=== PATIENT | male | born 1935 | race Caucasian/White ===

== ENCOUNTER 2018-02-21 05:40 | Observation (INO) | payer MEDICARE, BC ==
[2018-02-21 06:20] LABS: #Basophils 0.1 thou/uL (0.0-0.2); #Eosinphils 0.3 thou/uL (0.0-0.7); #Monocytes 0.6 thou/uL (0.11-0.59); #Neutrophils 2.2 thou/uL (1.40-6.50); %Basophils 1.3 % (0.0-1.0); %Eosinophils 5.7 % (0.0-10.0); %Lymphocytes 38.6 % (21.0-51.0); %Neutrophils 43.4 % (42.0-75.0); Mean Corpuscular HGB CONC 31.7 g/dL (32.0-36.0); Mean Corpuscular Hemoglobin 25.8 pg (27.0-31.0); Mean Corpuscular Volume 81.4 fL (78.0-98.0); Mean Platelet Volume 9.5 fL (7.4-10.4); Platelet Count 204 thou/uL (130-400); RBC Distribution Width 14.8 % (11.5-14.5); Red Blood Cell (RBC) Count 5.05 mill/uL (4.70-6.10)
[2018-02-21] MEDS ORDERED: Pantoprazole 40 MG VIAL ONE (06:20)
[2018-02-21 06:27] LABS: INR-International Normal Ratio 1.1; PTT 34.9 SEC (22.9-36.1); Prothrombin Time 14.7 SEC (12.0-14.7)
[2018-02-21 06:34] LABS: ALT (SGPT) 13 U/L (8-55); AST (SGOT) 17 U/L (5-34); Albumin 3.9 g/dL (3.4-4.8); Alkaline Phosphatase 64 U/L (40-150); Anion Gap 12 mmol/L (10-20); BUN (Urea Nitrogen) 14 mg/dL (8.4-25.7); Bilirubin, Total 0.8 mg/dL (0.2-1.2); Calc. Creatinine Clearance 0 mL/min (70-130); Calcium 9.3 mg/dL (7.8-10.44); Carbon Dioxide 20 mmol/L (23-31); Chloride 107 mmol/L (98-107); Estimated GFR-MDRD 88; Globulin 2.4 g/dL (2.4-3.5); Glucose 132 mg/dL (83-110); Potassium 4.1 mmol/L (3.5-5.1); Protein, Total 6.3 g/dL (5.8-8.1); Sodium 135 mmol/L (136-145)
[2018-02-21 06:50] LABS: CK (CPK) 51 U/L (30-200); Lipase 38 U/L (8-78)
[2018-02-21 06:54] LABS: CKMB 0.8 ng/mL (0-6.6); Troponin I Less than 0.010 ng/mL (< 0.028)
--- NOTE | 2018-02-21 08:12 | RAD ---
PORTABLE CHEST 1 VIEW: DATE: 02/21/2018. TIME: 6:11 a.m. HISTORY: Nausea and vomiting. FINDINGS: The heart size is normal. The aorta is tortuous. The lungs are expanded with evidence of old granul omatous disease. No focal areas of consolidation, pneumothoraces, or pleural effusions are seen. IMPRESSION: No acute process. POS: [facility]
[2018-02-21 12:18] LABS: Hemoglobin 11.5 g/dL (14.0-18.0)
--- NOTE | 2018-02-21 13:15 | CON ---
DATE OF CONSULTATION: 02/21/2018 [facility] Dr. Farrell in the ER. REASON FOR CONSULTATION: Acute gastrointestinal hemorrhage. HISTORY OF PRESENT ILLNESS: Mr. Keyur Palacio is a very pleasant 82-year-old male seen in the ER this morning. He had 1 episode of hematochezia. Apparently this morning he had an episode of passing large amount of fresh blood in the stool. He came to the ER. In the ER, initially his vital signs were stable. He had 2 more bloody stools in the ER, his blood pressure dropped down to 50 systolic. He was on IV saline bolus and also blood. The patient's blood pressure has come up now when I saw him around 11:00 o'clock this morning. His pulse is 75, blood pressure is 114/64. The patient did have abdominal pain, nausea, and vomiting. The patient is known to have diverticular disease and he has had multiple bleeding over the last several years. Apparently bleeding started sometime in 2007 and most recent was in July of 2017. He was hospitalized for 2 days at the [facility]. Each time he was hospitalized, he never had a blood transfusion and usually the bleeding stops after 24-48 hours. The patient's last colonoscopy was in 2014. He also has had EGD done by Dr. Deras in 2014 because of acid reflux and family history of some cancer. He tells me he had a couple of polyps taken off from his stomach. The patient also has history of colonoscopy and polypectomy in the past. At the present time, he appears very comfortable. He does complain of hearing loud bowel sounds and also mild nausea. He has no vomiting. Although he has had bleeding x3, blood count is really not low. Hemoglobin is 13 this morning. ALLERGIES: STATINS, PENICILLIN. SOCIAL HISTORY: The patient is . He is still employed at [employer] and works part-time. He does not smoke or drink alcohol. MEDICAL ILLNESSES: 1. Hypertension. 2. Chronic acid reflux. 3. Hyperlipidemia. 4. Stable coronary artery disease. 5. Myocardial infarction in 2004, status post stent placement. 6. A radical prostatectomy by Dr. Odin Katz in 2004 for prostate cancer, free of cancer. 7. Cardiac ablation in 2013 for PVCs and also nonsustained ventricular tachycardia. Other medical illness includes a colon polyp and diverticular disease, rectal bleeding over the years. MEDICATIONS: List reviewed. FAMILY HISTORY: Mother had some cancer. REVIEW OF SYSTEMS: A 10-point system review. CONSTITUTIONAL: No fever, no weight loss. His exercise tolerance is very good. He exercises regularly. HEENT: He is hard of hearing. LUNGS: No dyspnea, no chronic cough, no hemoptysis. CARDIOVASCULAR: No chest pain, no palpitation, no dyspnea on exertion, orthopnea or PND. GASTROINTESTINAL: As in history of present illness. GENITOURINARY: No dysuria or urinary incontinence or frequent urination. MUSCULOSKELETAL/ENDOCRINE/HEMATOLOGICAL: Unremarkable. PHYSICAL EXAMINATION: GENERAL: This is a very pleasant, elderly male, appears very comfortable. He is hard of hearing. He was seen in the ER with . VITAL SIGNS: Pulse 75, blood pressure 140/64. HEENT: Conjunctivae clear. NECK: Supple. No adenitis or thyromegaly noted. CARDIOVASCULAR: First and second heart sounds normal. LUNGS: Clear to auscultation. ABDOMEN: Soft. Abdomen is nondistended. Abdomen is nontender. He has an operative scar over the suprapubic area. There is no organomegaly or masses. EXTREMITIES: No edema. CENTRAL NERVOUS SYSTEM: Grossly within normal limits. LABORATORY: WBC 5000, hemoglobin is 13, hematocrit 41.1, MCV 87.4, platelet count 204,000, polymorphs 43, lymphocytes 38. Serum chemistries show sodium 135 , potassium 4.1, chloride 107, bicarbonate 20, BUN is 14 which rules out possibility of upper gastrointestinal bleeding, creatinine 0.84, glucose 132, calcium 9.3, bilirubin 0.8, AST 17, ALT 13, alkaline phosphatase 54. Iron is 217, TIBC 371, lipase 38. CPK 0.8. CLINICAL IMPRESSION: 1. An 82-year-old male with hematochezia. The bleeding is painless. The patient has had 4 episodes over the last 10-12 years. The last episode was in 07/2017and was hospitalized in [facility]. The patient's last colonoscopy was in 2014 was done in [place] as per the patient. During the last admission in [place], he had an angiogram, tagged RBC scan and colonoscopy. He says after investigation the bleeding suddenly stopped and he did not need anymore intervention or any surgery. Based on the above information, I believe he has bleeding from diverticular disease. 2. History of myocardial infarction in 2004, status post stent placement. 3. Radical prostatectomy [place] [address] Odin Katz. 4. Heart ablation in [address] [facility]. 5. Hypertension. 6. Hyperlipidemia. RECOMMENDATION: 1. Clear liquid diet. 2. Serial H&H. 3. No need for any colonoscopy as he had a colonoscopy in 2014 and most likely has diverticular bleeding. However, I would recommend a tagged RBC scan to localize the bleeding in case any surgery needed. I had a long talk with the patient and the patient's and explained to her that if he does not stop bleeding and it occurs more than 6 units of blood, surgical intervention may be needed. In the meantime, will follow the H&H and transfuse p.r.n. MTDD
[2018-02-21 14:32] LABS: Base Excess-Venous -3.7 mmol/L (0 (+/- 2.5)); Bicarbonate (HCO3v) 20.1 mmol/L (1.0-85.0); CO2 Tension (PvCO2) 31.4 mmHg (41.0-51.0); Hemoglobin - Calc 9.8 g/dL (12.0-18.0); O2 Tension (PvO2) 13.4 mmHg (35.0-45.0); Potassium 4.5 mmol/L (3.4-4.7); T. Carbon Dioxide 21.1 mmol/L (1.0-85.0); pH (Venous) 7.416 (7.35-7.45); vO2 Saturation-calc 16.9 % (94-98)
--- NOTE | 2018-02-21 15:01 | NM ---
RADIONUCLIDE GI BLEEDING SCAN: HISTORY: GI bleeding. RADIOPHARMACEUTICAL: 28.5 mCi Technetium 99m labeled RBCs injected intravenously. FINDINGS: Dynamic imaging of the abdomen and pelvis demonstrate a focal area of tracer collection in the region of the hepatic flexure with persistent increase in activity and associated peristalsis consistent wi th active GI bleed. IMPRESSION: Active gastrointestinal bleeding in the hepatic flexure. Discussed over the telephone with ER physician, Dr. Chevy Dugan, at 2:38 p.m. LILLY ALEXANDER POS: [facility]
[2018-02-21 16:11] LABS: #Lymphocytes 0.8 thou/uL (1.20-3.40); #Monocytes 0.4 thou/uL (0.11-0.59); #Neutrophils 7.1 thou/uL (1.40-6.50); %Basophils 0.3 % (0.0-1.0); %Eosinophils 0.3 % (0.0-10.0); %Lymphocytes 9.2 % (21.0-51.0); %Neutrophils 85.2 % (42.0-75.0); Mean Corpuscular HGB CONC 32.3 g/dL (32.0-36.0); Mean Corpuscular Volume 83.7 fL (78.0-98.0); Mean Platelet Volume 9.5 fL (7.4-10.4); Platelet Count 152 thou/uL (130-400); Red Blood Cell (RBC) Count 3.71 mill/uL (4.70-6.10); White Blood Cell (WBC) Count 8.3 thou/uL (4.8-10.8)
[2018-02-21 16:36] LABS: Anion Gap 5 mmol/L (10-20); BUN (Urea Nitrogen) 13 mg/dL (8.4-25.7); Calc. Creatinine Clearance 0 mL/min (70-130); Calcium 7.3 mg/dL (7.8-10.44); Carbon Dioxide 20 mmol/L (23-31); Chloride 115 mmol/L (98-107); Estimated GFR-MDRD Greater than 90; Glucose 115 mg/dL (83-110); Potassium 4.2 mmol/L (3.5-5.1); Sodium 136 mmol/L (136-145)
--- NOTE | 2018-02-21 22:17 | HP ---
DATE OF ADMISSION: 02/21/2018 PRIMARY CARE PHYSICIAN: Dr. Trevor Zhang. CHIEF COMPLAINT: GI bleed. HISTORY OF PRESENT ILLNESS: This is an 82-year-old male who presented to [facility] complaining of bright red blood per rectum approximately 5:00 a.m. on the morning of his admission. Patient states he passed a large amount of bright red blood. Patient presented to [facility] emergency room with bright red blood per rectum, at which point the patient was noted with hypoten eduard approximately 6:00 a.m. Patient received 2 units of packed red blood cells in the emergency tahir m as well as IV fluids. Initial hemoglobin was noted and it was noted at 13 with subsequent repeat a pproximately 12:00 p.m. of 11.5. Patient had 3-5 large bowel movements in the emergency room with as sociated hypotensive episodes, one occurring during a bleeding scan requiring normal saline fluid cipriano us. Patient underwent the bleeding scan showing evidence of active bleed in the hepatic flexure honorio on. Patient was evaluated by the GI service; however, due to the brisk GI bleed, was unable to under go colonoscopy, necessitating the tagged red blood cell scan. Patient received a third unit of packe d red blood cells after hypotensive episode and large bloody bowel movement. Patient was evaluated b y the General Surgery Service for potential colectomy to control the hemorrhage; however, currently [facility] is being evaluated for potential transfer to a higher level of care and tertiary center for ar teriogram and embolization. Patient's last colonoscopy in 2014 showed evidence of diverticulosis. P pranav states he has had previous blood transfusions due to gastrointestinal bleed in 2012 but has no t had recurrence since requiring packed red blood cells. Patient also admits to history of gastric p olyps, status post polypectomy. PAST MEDICAL HISTORY: 1. Hypertension. 2. Gastroesophageal reflux. 3. History of gastric polyps. 4. Diverticulosis. 5. History of GI bleed secondary to diverticulosis/diverticulitis. 6. Coronary artery disease status post cardiac stent placement. PAST SURGICAL HISTORY: 1. Status post radical prostatectomy in 2004. 2. History of cardiac ablation, secondarily to frequent PVCs and nonsustained ventricular tachycardi a. 3. Hyperlipidemia. CURRENT MEDICATIONS: 1. Lisinopril 10 mg daily. 2. Aspirin 81 mg p.o. daily. 3. Zetia. 4. Nexium. ALLERGIES: PENICILLIN. FAMILY HISTORY: No inheritable diseases per patient report. SOCIAL HISTORY: Patient is and resides in the [facility] area. Retired professor at [employer]. Remote tobacco use. Alcohol weekly with a scotch daily. No illicit drug use. Funct ional of all activities of daily living. Regular exercise routine per 's report. REVIEW OF SYSTEMS: The following complete review of systems was negative, unless otherwise mentioned in the HPI or below: Constitutional: Weight loss or gain, ability to conduct usual activities. Sk in: Rash, itching. Eyes: Double vision, pain. ENT/Mouth: Nose bleeding, neck stiffness, pain, te nderness. Cardiovascular: Palpitations, dyspnea on exertion, orthopnea. Respiratory: Shortness of breath, wheezing, cough, hemoptysis, fever or night sweats. Gastrointestinal: Poor appetite, abdom inal pain, heartburn, nausea, vomiting, constipation, or diarrhea. Genitourinary: Urgency, frequenc y, dysuria, nocturia. Musculoskeletal: Pain, swelling. Neurologic/Psychiatric: Anxiety, depressio n. Allergy/Immunologic: Skin rash, bleeding tendency. PHYSICAL EXAMINATION: VITAL SIGNS: Currently, blood pressure is 119/65, pulse 88, respiratory rate 22, O2 saturation 97% o n room air. GENERAL APPEARANCE: This is an 82-year-old male, pale appearing, lying on [facility] in [place] in mild distress. HEENT: Pupils are equal, round, and reactive to light and accommodation. Extraocular muscles are in tact. Nares patent. OP is clear. NECK: Supple, no cervical adenopathy, no thyromegaly, no carotid bruits, no JVD noted. CHEST: Lungs are clear to auscultation bilaterally. CARDIOVASCULAR: S1, S2, without murmur, rub or gallop. No tachycardia. ABDOMEN: Rounded, soft, nontender, nondistended. Bowel sounds are noted in all 4 quadrants. No pal pable mass. EXTREMITIES: Warm and dry with fair turgor, pale appearing with pale nail beds. Pulses palpable dis tally at the dorsalis pedis and posterior tibial arteries. NEUROLOGIC: Cranial nerves II-XII are grossly intact. Patient not observed ambulatory during this e xam. Answers questions. PERTINENT LABORATORY AND X-RAY FINDINGS: Sodium 142, potassium 4.5, chloride 109, CO2 of 20, BUN 14, creatinine 0.84, calcium 9.3. LFTs within normal limits. Troponin I negative x1. Total CK 51. BN P 28, lipase 38. CBC showed an initial white blood cell count of 5.0, hemoglobin ranged between 11.5 -13.0, platelet count 204 with normal differential. PT 14.7, INR 1.1, PTT 34.9. Portable chest x-ra y dated 02/21/2018 showed no acute process. Tagged red blood cell bleeding scan dated 02/21/2018 carolyn wed active GI bleed in the hepatic flexure. Telemetry monitoring shows a sinus mechanism with heart rates in the 60s. ASSESSMENT AND PLAN: 1. Acute gastrointestinal bleed. Appears to be from the hepatic flexure distribution by bleeding sc an as stated previously. General Surgery consulted for potential colectomy. We will pursue interven tional options likely necessitating transfer to a tertiary care center for arteriogram and embolizati on in the hopes of salvaging the colon. Continue hemodynamic resuscitation with third unit of packed red blood cells. Continue intravenous normal saline at 200 mL per hour. 2. Acute blood loss anemia secondary to #1. See #1 above for treatment plan. Serial H&H monitoring . Type and cross for additional 2 units of packed red blood cells. 3. Hypovolemic shock. We will continue aggressive fluid resuscitation as stated previously. Contin ue [place]. Continue intravenous normal saline fluid boluses to maintain systolic over 100. A void antihypertensive medications. 4. Coronary artery disease, chronic and stable. Hold aspirin due to gastrointestinal bleed. Contin ue telemetry monitoring. 5. Gastroesophageal reflux. Continue Protonix 40 mg IV q.12 hours. 6. Prophylaxis. Sequential compression devices while in bed. N.p.o. except ice chips. 7. Code status is FULL. Surrogate medical decision maker is patient's spouse. Total critical care time is 45 minutes.
--- NOTE | 2018-02-21 23:09 | CON ---
DATE OF CONSULTATION: 02/21/[address] Camacho from Internal Medicine. GASTROENTEROLOGY CONSULTING: Dr. Ford. GENERAL SURGEON: Dr. David Cortes. PRIMARY CARE: Dr. Trevor Zhang. HEALTH SAFETY SPECIALIST: Dr. Cruz. GASTROENTEROLOGY: Dr. Bhavesh Deras. REASON FOR CONSULTATION: Acute GI bleed with hemorrhagic shock. HISTORY OF PRESENT ILLNESS: Mr. Palacio is an 82-year-old gentleman with a past medical history of diverticulosis with recurrent lower GI bleeds; coronary artery disease, status post OH with stenting in 2004; nephrolithiasis, who presents to the emergency department today with a chief complaint of GI bleeding filling an entire commode with giulia blood. Hemoglobin based on outside records reviewed here shows 14.2 and is recorded 13 here; however, the patient was tachycardic and somewhat symptomatic. He was initially admitted to the [facility]; however, during a nuclear medicine stress test that demonstrated acute GI bleed at the hepatic flexure. Patient had a hypotensive episode, another large bowel movement of giulia blood, and he was brought down to the emergency department as there is no critical care beds. He was given an additional 1 unit of blood for a total of 2 units PRBCs here. Hemoglobin has continued to downtrend. A central line was placed. IV fluids have been given and Protonix has been given. We are consulted for possible operative management of his acute GI bleed and hemorrhagic shock. I have evaluated Mr. Palacio in the emergency department. He is lying supine in bed, is slightly pale. Blood pressure is stable with a MAP in the 70s, heart rates in the 70s as well. He is on room air at 100%. His is at the bedside. The patient has no abdominal pain. States that he feels weak and per the nursing reports, his blood pressure drops every time he sits up. I have requested an additional CBC, BMP, and fibrinogen level now. We have also requested Dr. Camacho, the primary team, to consult with Interventional Radiology or the CV team for possible embolectomy of the affected artery. This is ongoing. This was explained to the patient. Patient has no chest pain, no nausea, no vomiting. Positive for diarrhea. Positive for bloody stool. He was short of breath this morning, but is no longer short of breath and endorses generalized weakness. REVIEW OF SYSTEMS: Pertinent positive and negative per the HPI, otherwise 12- point review of systems is negative. PAST MEDICAL HISTORY: 1. Diverticulosis. 2. Coronary artery disease. 3. Nephrolithiasis. 4. Hypertension. PAST SURGICAL HISTORY: 1. Appendectomy at age 12. 2. Prostatectomy in 2004. 3. Last endoscopy was 2014. 4. Last admission was 07/2017 for GI bleed at [facility]. MEDICATIONS: Lisinopril 10 mg; Nexium 40 mg; Zetia; aspirin 81 mg, last dose yesterday. FAMILY HISTORY: Noncontributory, but no reports of bleeding disorders reported. SOCIAL HISTORY: The patient is a nonsmoker, nondrinker. 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 PHYSICAL EXAMINATION: VITAL SIGNS: Blood pressure 108/84, heart rate is now 90, respiratory rate is 20, temperature is 97.8, 98% on room air. GENERAL: An 82-year-old male lying supine in bed who is pale and weak. HEENT: Normocephalic, atraumatic. Pale conjunctivae. Trachea is midline. NECK: No JVD is appreciated. RESPIRATORY: Equal rise and fall. Bilateral breath sounds are clear to auscultation upper and lower bilaterally. CARDIOVASCULAR: Regular rate and rhythm. No murmurs are appreciated. EXTREMITIES: Strong pulses in upper extremities. ABDOMEN: Soft, slightly tender, generalized, but no masses, guarding, or rigidity. No peritoneal signs. PELVIS: Deferred. MUSCULOSKELETAL: Moves extremities well. NEUROLOGIC: No gross deficits. Alert and oriented to person, place, time, and event. Reports weakness only. PSYCHIATRIC: Normal mood and affect. DIAGNOSTIC AND LABORATORY DATA: Today a GI nuclear study shows active gastrointestinal bleeding at the hepatic flexure. A chest x-ray from today shows no acute process. Initial hemoglobin on arrival was 13.0, hematocrit is 41.1, last was 11.5 and 36.6 respectively. Platelets are 204,000. Chemistry: Sodium is 135, CO2 is 20, chloride is 107, potassium is 4.1, creatinine is 0.84 , BUN is 14, glucose 132. Liver profile is unremarkable. INR is 1.1. PT of 14.7. ASSESSMENT: 1. Acute active gastrointestinal bleed leading to hemorrhagic shock. 2. Likely diverticulosis with acute bleed. 3. Acute symptomatic anemia secondary to #1 above. PLAN AND RECOMMENDATIONS: We have requested an additional CBC and BMP for electrolytes and fibrinogen level now. The patient has received a total of 3 units of PRBCs. We have had an additional 2 on hold as needed, transfuse for further blood loss. The patient may need additional blood products. Try to find an IR team available for embolization of his active bleed. If this is unavailable, we can consider operative approach. We have discussed this with both the patient and the patient's at the bedside. They are amenable. He understands that if this is the case, we will have to do a diverting colostomy tonight and he verbalizes understanding and is willing to go through with the operation. In the meantime, we would like to maintain a mean arterial pressure greater than 65, oxygen equal greater than 92%. We will do serial CBCs and transfuse as needed. Continue IV fluids and pain control as needed. We will follow up on the labs that are ordered and continue to follow along as long as the patient is admitted to our service. I have coordinate care with the emergency department physician and the primary team and reviewed the GI recommendation notes. CHRYSTAL
--- NOTE | 2018-02-22 09:11 | DIS ---
DATE OF ADMISSION: 02/21/2018 DATE OF DISCHARGE: 02/21/2018 DISCHARGE DIAGNOSES: 1. Acute gastrointestinal bleeding. 2. Acute blood loss anemia. 3. Hypovolemic shock. 4. Coronary artery disease, chronic. 5. Gastroesophageal reflux disease. CONSULTATIONS: Dr. Ford with GI service. Dr. Cortes with General Surgery Service. PERTINENT LABORATORY AND X-RAY FINDINGS: BNP 28, lipase 38, creatinine 0.72. CBC showed hemoglobin ranged between 10.0-13.0, platelet count ranged between 152-204. PT 14.7, INR 1.1, PTT 34.9. Fibrin ogen 170. Portable chest x-ray dated 02/21/2018 showed no acute cardiopulmonary process. GI bleedin g scan dated 02/21/2018 showed active gastrointestinal bleeding in the hepatic flexure. HOSPITAL COURSE: The patient was evaluated in the emergency department after presenting with acute G I bleeding in the context of known diverticulosis. The patient received 3 units of packed red blood cells and was noted with hypotension and hypovolemic shock. The patient was evaluated by the GI Serv ice with recommendations for tagged red blood cell. Bleeding scan showing evidence of active gastroi ntestinal bleeding in the hepatic flexure. The patient received IV normal saline fluid boluses and w as given two peripheral IVs as well as right femoral central venous catheter. The patient had multip le large bloody bowel movements during the hospital course with serial hemoglobin ranged from 10-13. Due to patient's active gastrointestinal bleeding in the hepatic flexure, discussions were had with Interventional Radiology for a potential arteriogram and embolization procedure; however, this was un available at [facility]. Discussions with transfer center took place to transfer patient t o higher level of care in tertiary center for consideration of arteriogram and embolization to [facility]. General Surgery did evaluate the patient, however, there was concurrence of opinion to seek embolization as a primary procedure if available acutely. The patient was accepted by [facility] Critical [facility] Team in [place], [place] and life-flighted at approximately 1700 p.m. The patient rece ived additional 3 units of packed red blood cells and 1 unit of FFP in flight. I have examined the p atient before transport with stable vital signs. The patient and verbalized understanding and a greement for transfer to higher level of care. DISCHARGE MEDICATIONS: 1. Enteric coated aspirin 325 mg daily, held. 2. Lipitor 10 mg p.o. daily, held. 3. Nexium 20 mg p.o. daily, held. 4. Lisinopril 10 mg p.o. daily, held. FOLLOWUP: The patient will follow up with [facility] Critical Care Service and Interventional Radiol dajuan on 02/21/2018. The patient may follow up with his primary care provider, Dr. Trevor Zhang after d ischarge from acute care. CONDITION ON DISCHARGE: Guarded. ACTIVITY: Ad rahat. DIET: N.p.o. DISPOSITION: Immediate air transport to [facility] in [place], [place] on 02/21/2018.
== END 2018-02-21 10:32 | disposition short-term general hospital (02) ==
LOC: ERS 05:40 → ERHOLD 06:20 → UNDODISOB 03-24 10:32
PROVIDERS: ADMIT Internal Medicine; ATTEND Internal Medicine
DX: K57.31 Diverticulosis of large intestine without perforation or abscess with bleeding (principal); D62 Acute posthemorrhagic anemia; R57.1 Hypovolemic shock; I25.10 Atherosclerotic heart disease of native coronary artery without angina pectoris; K21.9 Gastro-esophageal reflux disease without esophagitis; I10 Essential (primary) hypertension; E78.5 Hyperlipidemia, unspecified; I25.2 Old myocardial infarction; Z87.891 Personal history of nicotine dependence; Z86.010 Personal history of colon polyps; Z79.82 Long term (current) use of aspirin; Z79.899 Other long term (current) drug therapy; Z88.0 Allergy status to penicillin; Z88.8 Allergy status to other drugs, medicaments and biological substances; Z95.5 Presence of coronary angioplasty implant and graft
CPT/HCPCS: 36430; 36556; 71045; 78278; 80048; 80053; 82330; 82435; 82550; 82553; 82565; 82803; 82947; 83605; 83690; 83880; 84132; 84295; 84484; 85014; 85018; 85025 ×2; 85384; 85610; 85730; 86850; 86900; 86901; 86920; 93005; 96361; 96374; 99285; A9604; G0378; P9016; P9059; 36415; C9113